=== PATIENT | male | born 1970 | race African-American/Black ===

== ENCOUNTER 2016-09-06 07:45 | Emergency (ER) | payer BC ==
[2016-09-06 10:20] LABS: ABSOLUTE LYMPHOCYTES (AUTO) 1.2 10^3/uL (0.5-4.7); ABSOLUTE MONOCYTES (AUTO) 0.2 10^3/uL (0.1-1.4); ABSOLUTE NEUT (AUTO) 2.4 10^3/uL (1.7-8.2); BASOPHILS % (AUTO) 0.8 % (0-2); EOSINOPHILS % (AUTO) 1.3 % (0-6); HEMATOCRIT 42.1 % (37.9-51.0); HEMOGLOBIN 13.4 g/dL (13.5-17.0); HGB HCT DIFFERENCE -1.9; LYMPHOCYTES % (AUTO) 30.1 % (13-45); MEAN CORPUSCULAR HEMOGLOBIN 25.3 pg (27.0-33.4); MEAN CORPUSCULAR HGB CONC 31.8 g/dL (32.0-36.0); MEAN CORPUSCULAR VOLUME 80 fl (80-97); MONOCYTES % (AUTO) 6.1 % (3-13); RED CELL DISTRIBUTION WIDTH 14.6 % (11.5-14.0); SEGMENTED NEUTROPHILS % (AUTO) 61.7 % (42-78); WHITE BLOOD COUNT 3.8 10^3/uL (4.0-10.5)
[2016-09-06 10:32] LABS: ALANINE AMINOTRANSFERASE 43 U/L (21-72); ALBUMIN 4.5 g/dL (3.5-5.0); ALKALINE PHOSPHATASE 84 U/L (38-126); ANION GAP 9 (5-19); ASPARTATE AMINO TRANSFERASE 37 U/L (17-59); BILIRUBIN,TOTAL 0.5 mg/dL (0.2-1.3); BLOOD UREA NITROGEN 15 mg/dL (7-20); CALCIUM 10.1 mg/dL (8.4-10.2); CARBON DIOXIDE 28 mmol/L (22-30); CHLORIDE 101 mmol/L (98-107); CREATINE KINASE 811 U/L (55-170); CREATININE RESULT 1.07 mg/dL (0.52-1.25); GLUCOSE 88 mg/dL (75-110); POTASSIUM 5.1 mmol/L (3.6-5.0); SODIUM 137.7 mmol/L (137-145); TOTAL PROTEIN 8.1 g/dL (6.3-8.2)
[2016-09-06 10:42] LABS: CREATINE KINASE MB 4.87 ng/mL (<4.55); TROPONIN I 0.016 ng/mL
[2016-09-06] MEDS ORDERED: NORMAL SALINE 1000 ML 1,000 ML IV ONE (11:03)
--- NOTE | 2016-09-06 11:23 | ER Document Report ---
ED Blood Pressure Problem - General Chief Complaint: High Blood Pressure Stated Complaint: BLOOD PRESSURE PROBLEM Mode of Arrival: Ambulatory Information source: Patient Notes: Patient states that he had an episode of lightheadedness yesterday that lasted for several seconds. Patient states he was driving his car became lightheaded and rolled down his windows and got fresh air which he feels helped his symptoms resolved. Patient states that today he started to feel lightheaded in which she felt off-balance around 7 this morning and states that his symptoms lasted for about 45 minutes. Patient states that his blood pressure has been running higher today than it normally does. Patient does state that he took his blood pressure medications this morning and has not had any recent dose changes. Patient does report upper respiratory cold symptoms for the past week. Patient denies any nausea, vomiting, fever, shortness of breath, or chest pain. Patient states he did have similar symptoms last year for which he was treated for dehydration. Patient presently denies any complaints or symptoms at this time. TRAVEL OUTSIDE OF THE [place] IN LAST 30 DAYS: No - HPI Patient complains to provider of: High blood pressure Onset: This morning Onset/Duration: Gone Quality of pain: No pain Pain Level: Denies Associated symptoms: Lightheaded. 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 denies: Fever EENT: No symptoms reported. denies: Ear pain, Throat pain Cardiovascular: Lightheaded. denies: Chest pain, Palpitations, Heart racing, Syncope Respiratory: Cough. denies: Short of breath Gastrointestinal: No symptoms reported. denies: Abdominal pain, Diarrhea, Nausea, Vomiting Genitourinary: No symptoms reported. denies: Dysuria, Flank pain Male Genitourinary: No symptoms reported Musculoskeletal: No symptoms reported. denies: Back pain Skin: No symptoms reported Hematologic/Lymphatic: No symptoms reported Neurological/Psychological: No symptoms reported. denies: Weakness Physical Exam - Vital signs Vitals: Temp Pulse Resp BP Pulse Ox 98.1 F 87 20 172/93 H 100 09/06/16 07:50 09/06/16 07:50 09/06/16 07:50 09/06/16 07:50 09/06/16 07:50 - General General appearance: Appears well, Alert Notes: Morbidly obese - HEENT Head: Normocephalic, Atraumatic Eyes: Normal Conjunctiva: Normal Nasal: Normal Mouth/Lips: Normal Mucous membranes: Normal Neck: Normal, Supple. No: Lymphadenopathy - Respiratory Respiratory status: No respiratory distress Chest status: Nontender Breath sounds: Normal. No: Rales, Rhonchi, Stridor, Wheezing Chest palpation: Normal - Cardiovascular Rhythm: Regular Heart sounds: S1 appreciated, S2 appreciated Murmur: No - Abdominal Inspection: Morbidly Obese Distension: No distension Tenderness: Nontender - Back Back: Normal, Nontender. No: CVA tenderness - Extremities General upper extremity: Normal inspection, Normal strength. No: Edema General lower extremity: Normal inspection, Normal strength. No: Edema - Neurological Neuro grossly intact: Yes Cognition: Normal [place] Coma Scale Eye Opening: Spontaneous [place] Coma Scale Verbal: Oriented [place] Coma Scale Motor: Obeys Commands Gail Coma Scale Total: 15 - Psychological Associated symptoms: Normal affect, Normal mood - Skin Skin Temperature: Warm Skin Moisture: Dry Skin Color: Normal Course - Re-evaluation Re-evalutation: 09/06/16 11:[address] Tovar regarding patient presentation. Discussed patient's diagnostic evaluation as well as planned disposition. Does not recommend repeating patient CK or CK-MB. Only recommends giving patient 1 L of IV fluids here and having patient follow up with his primary doctor for recheck. Recommends encouraging patient to increase his oral hydration to prevent any long-term renal injury. 09/06/16 13:38 Patient continues without complaints at this time. Discussed importance of staying well hydrated with patient. Patient encouraged to follow-up with his primary doctor to have his renal function tests repeated as well as his CK test. Patient verbalized understanding and agrees with plan of care. - Vital Signs Vital signs: Temp Pulse Resp BP Pulse Ox 98.1 F 88 20 155/93 H 96 09/06/16 14:04 09/06/16 14:04 09/06/16 14:04 09/06/16 14:04 09/06/16 14:04 - Laboratory Result Diagrams: 09/06/16 09:50 09/06/16 09:50 Laboratory results interpreted by me: 09/06/16 09/06/16 09/06/16 09:50 09:50 09:50 WBC 3.8 L Hgb 13.4 L MCH 25.3 L MCHC 31.8 L RDW 14.6 H Potassium 5.1 H Creatine Kinase 811 H CK-MB (CK-2) 4.87 H Urine Blood 09/06/16 13:10 WBC Hgb MCH MCHC RDW Potassium Creatine Kinase CK-MB (CK-2) Urine Blood SMALL H 09/06/16 13:39 Labs- Entire Visit 09/06/16 09/06/16 09/06/16 09:50 09:50 09:50 WBC 3.8 L RBC 5.30 Hgb 13.4 L Hct 42.1 MCV 80 MCH 25.3 L MCHC 31.8 L RDW 14.6 H Plt Count 328 Seg Neutrophils % 61.7 Lymphocytes % 30.1 Monocytes % 6.1 Eosinophils % 1.3 Basophils % 0.8 Absolute Neutrophils 2.4 Absolute Lymphocytes 1.2 Absolute Monocytes 0.2 Absolute Eosinophils 0.0 Absolute Basophils 0.0 Sodium 137.7 Potassium 5.1 H Chloride 101 Carbon Dioxide 28 Anion Gap 9 BUN 15 Creatinine 1.07 Est GFR ( Amer) > 60 Est GFR (Non-Af Amer) > 60 Glucose 88 Calcium 10.1 Total Bilirubin 0.5 Direct Bilirubin 0.0 AST 37 ALT 43 Alkaline Phosphatase 84 Creatine Kinase 811 H CK-MB (CK-2) 4.87 H Troponin I 0.016 Total Protein 8.1 Albumin 4.5 Urine Color Urine Appearance Urine pH Ur Specific [place] Urine Protein Urine Glucose (UA) Urine Ketones Urine Blood Urine Nitrite Urine Bilirubin Urine Urobilinogen Ur Leukocyte Esterase Urine WBC (Auto) Urine RBC (Auto) Urine Mucus (Auto) Urine Ascorbic Acid 09/06/16 13:10 WBC RBC Hgb Hct MCV MCH MCHC RDW Plt Count Seg Neutrophils % Lymphocytes % Monocytes % Eosinophils % Basophils % Absolute Neutrophils Absolute Lymphocytes Absolute Monocytes Absolute Eosinophils Absolute Basophils Sodium Potassium Chloride Carbon Dioxide Anion Gap BUN Creatinine Est GFR ( Amer) Est GFR (Non-Af Amer) Glucose Calcium Total Bilirubin Direct Bilirubin AST ALT Alkaline Phosphatase Creatine Kinase CK-MB (CK-2) Troponin I Total Protein Albumin Urine Color STRAW Urine Appearance CLEAR Urine pH 7.0 Ur Specific [place] 1.006 Urine Protein NEGATIVE Urine Glucose (UA) NEGATIVE Urine Ketones NEGATIVE Urine Blood SMALL H Urine Nitrite NEGATIVE Urine Bilirubin NEGATIVE Urine Urobilinogen NEGATIVE Ur Leukocyte Esterase NEGATIVE Urine WBC (Auto) 1 Urine RBC (Auto) 1 Urine Mucus (Auto) RARE Urine Ascorbic Acid NEGATIVE 09/06/16 13:40 09/06/16 19:35 - EKG Interpretation by Me EKG shows normal: Sinus rhythm When compared to previous EKG there are: No significant change Discharge - Discharge Clinical Impression: Light-headed feeling, Elevated blood pressure reading, Elevated creatine kinase level, Hyperkalemia Condition: Stable Disposition: HOME, SELF-CARE Instructions: High Blood Pressure ([facility]), Dizziness ([facility]) Additional Instructions: Return immediately for any new or worsening symptoms Followup with your primary care provider, call tomorrow to make a followup appointment Your creatinine kinase test was elevated today. It is very important that you stay well hydrated. Follow-up with your primary doctor to have this test repeated. Your potassium level was mildly elevated today. Your primary doctor can repeat this blood test as well . Call your doctor today to make a follow- up appointment to have these laboratory tests repeated. 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 Forms: Elevated Blood Pressure, Return to Work Referrals: JEY SHAH MD [Primary Care Provider] - Follow up tomorrow IRASEMA JAIN MD [ACTIVE STAFF] - Follow up in 3-5 days
[2016-09-06 13:29] LABS: APPEARANCE,URINE CLEAR; BILIRUBIN,URINE NEGATIVE (NEGATIVE); GLUCOSE, URINE NEGATIVE (NEGATIVE); KETONES,URINE NEGATIVE (NEGATIVE); LEUKOCYTE ESTERASE,URINE NEGATIVE (NEGATIVE); NITRITE,URINE NEGATIVE (NEGATIVE); PROTEIN,URINE NEGATIVE (NEGATIVE); URINE SPECIFIC GRAVITY 1.006; UROBILINOGEN,URINE NEGATIVE mg/dL (<2.0)
[2016-09-06 14:05] VITALS: BP 155/93
--- NOTE | 2016-09-07 11:18 | EKG REPORT ---
SEVERITY:- ABNORMAL ECG - SINUS RHYTHM PROBABLE LEFT ATRIAL ABNORMALITY REPOL ABNRM, PROBABLE ISCHEMIA, ANT-LAT LEADS : Confirmed by: Eduardo Arboleda 07-Sep-2016 11:18:11
== END 2016-09-06 14:04 | disposition home or self-care (01) ==
LOC: ER 07:45
DX: R42 Dizziness and giddiness (principal); E87.5 Hyperkalemia; R74.8 Abnormal levels of other serum enzymes; R05 Cough; I10 Essential (primary) hypertension; E66.01 Morbid (severe) obesity due to excess calories; Z79.899 Other long term (current) drug therapy; Z72.0 Tobacco use
CPT/HCPCS: 93005; 99284; 96360; 36415; 82553; 82550; 85025; 80053; 81001; 84484; 71010; 93010; J7030